=== PATIENT | male | born 1990 | race Caucasian/White ===

== ENCOUNTER 2022-08-26 07:45 | Emergency (ER) | payer OTHER ==
[2022-08-26 07:56] VITALS: BP 125/89; PULSE 64; RESP 18; TEMP 97.8; BMI 35.6
[2022-08-26] MEDS ORDERED: KETOROLAC TROMETHAMINE 30 MG/1 ML VIAL IM ONE (08:06)
[2022-08-26] MEDS ORDERED: diazePAM 5 MG TABLET PO ONE (08:06)
[2022-08-26] MEDS ORDERED: LIDOCAINE 5% TOPICAL PATCH TP ONE (08:06)
[2022-08-26] MEDS ORDERED: ACETAMINOPHEN 500 MG TABLET (FP) PO ONE (08:06)
[2022-08-26] MEDS ORDERED: diazePAM 5 MG TABLET ONE (08:35)
[2022-08-26] MEDS ORDERED: KETOROLAC TROMETHAMINE 30 MG/1 ML VIAL ONE (08:35)
[2022-08-26] MEDS ORDERED: ACETAMINOPHEN 500 MG TABLET (FP) ONE (08:35)
[2022-08-26] MEDS ORDERED: LIDOCAINE 5% TOPICAL PATCH ONE (08:35)
[2022-08-26] MEDS ORDERED: LIDOCAINE PATCH REMOVAL MC ONE (22:00)
== END 2022-08-26 09:05 | disposition home or self-care (01) ==
LOC: JERFT 07:45
PROC: 3E0233Z Introduction of Anti-inflammatory into Muscle, Percutaneous Approach (ICD-10-PCS; principal; 2022-08-26)
DX: M54.50 Low back pain, unspecified (principal); S39.012A Strain of muscle, fascia and tendon of lower back, initial encounter; Y93.F2 Activity, caregiving, lifting
CPT/HCPCS: 99284-25